=== PATIENT | female | born 1940 | race Caucasian/White ===

== ENCOUNTER 2017-05-20 10:19 | Outpatient (CLI) | payer MEDICARE, BC | END 2017-05-20 10:20 | disposition home or self-care (01) | LOC: BICMAMMO 10:19 | PROVIDERS: ATTEND Surgery | DX: R92.8 Other abnormal and inconclusive findings on diagnostic imaging of breast (principal); Z85.3 Personal history of malignant neoplasm of breast | CPT/HCPCS: G0204; G0279; 77066 ==

== ENCOUNTER 2018-03-17 10:30 | Outpatient (CLI) | payer MEDICARE, BC ==
--- NOTE | 2018-03-17 12:25 | CT ---
CT ABDOMEN AND PELVIS WITH CONTRAST: Date: 03/17/18 COMPARISON: 10/15/16. HISTORY: Colitis. Lower abdominal pain and diarrhea since January. TECHNIQUE: Multiple contiguous axial images were obtained in a CT of the abdomen and pelvis with contrast. PO co ntrast was administered. Coronal reformats were performed. FINDINGS: The liver, gallbladder, kidneys, adrenal glands, spleen, and pancreas are unremarkable. No free air, free fluid, or stranding changes are seen in the abdomen or pelvis. There is a stable hypodensity along the right aspect of the pelvis measuring 2.7 cm in size, which ma y represent a right ovarian cyst/follicle. The reproductive organs are otherwise unremarkable. There are a few scattered diverticula in the colon. The large and small bowel are otherwise unremarka ble. The appendix is normal. No abdominal or pelvic lymphadenopathy are seen. Atherosclerotic calcifications are seen in the aorta . Degenerative changes are seen in the spine. The visualized inferior thorax and abdominal wall soft ti ssues are unremarkable. IMPRESSION: 1. No evidence of acute intra-abdominal/pelvic abnormality. 2. Diverticulosis without evidence of acute diverticulitis. 3. Stable right ovarian cyst/follicle. POS: [facility]
[2018-03-17] MEDS ORDERED: Iopamidol 370 76% 100 ML VIAL ONE (12:44)
== END 2018-03-17 10:31 | disposition home or self-care (01) ==
LOC: BICCT 10:30
PROVIDERS: ATTEND Internal Medicine Gastroenterology
DX: K52.9 Noninfective gastroenteritis and colitis, unspecified (principal); K57.30 Diverticulosis of large intestine without perforation or abscess without bleeding; N83.01 Follicular cyst of right ovary
CPT/HCPCS: 74177

== ENCOUNTER 2018-06-17 09:11 | Outpatient (CLI) | payer MEDICARE, BC ==
--- NOTE | 2018-06-19 08:59 | MMO ---
FILMS COMPARED: The present examination has been compared to prior imaging studies performed at [facility] on 05/17/2014, 05/17/2015, 05/22/2016 and 11/20/2016, and at [facility] [place] on 03/02/2014 and 03/08/2014. MAMMOGRAM FINDINGS: There are scattered fibroglandular densities. Finding 1: There are benign appearing calcifications seen in both breasts. Finding 2: There are biopsy clips seen in both breasts. There are no suspicious masses, calcifications or areas of architectural distortion. IMPRESSION: ALL ABOVE FINDINGS ARE BENIGN. A ROUTINE FOLLOW-UP MAMMOGRAM IN 1 YEAR IS RECOMMENDED. ACR BI-RADS Category 2 - Benign finding
== END 2018-06-17 09:12 | disposition home or self-care (01) ==
LOC: BICMAMMO 09:11
PROVIDERS: ATTEND Internal Medicine Medical Oncology
DX: Z08 Encounter for follow-up examination after completed treatment for malignant neoplasm (principal); Z85.3 Personal history of malignant neoplasm of breast
CPT/HCPCS: 77066; G0279

== ENCOUNTER 2021-04-25 08:58 | Outpatient (CLI) | payer MEDICARE, BC | END 2021-04-25 08:59 | disposition home or self-care (01) | LOC: NM 08:58 | PROVIDERS: ATTEND Internal Medicine | DX: R10.84 Generalized abdominal pain (principal) | CPT/HCPCS: 78227; A9537 ==

== ENCOUNTER 2024-12-09 09:26 | Outpatient (CLI) | payer MEDICARE, BC | END 2024-12-09 09:27 | disposition home or self-care (01) | LOC: BICMAMMO 09:26 | PROVIDERS: ATTEND Internal Medicine | DX: Z13.820 Encounter for screening for osteoporosis (principal); M81.0 Age-related osteoporosis without current pathological fracture; M85.851 Other specified disorders of bone density and structure, right thigh; M85.852 Other specified disorders of bone density and structure, left thigh | CPT/HCPCS: 77080 ==

== ENCOUNTER 2025-04-02 08:35 | Outpatient (CLI) | payer MEDICARE, BC | END 2025-04-02 08:36 | disposition home or self-care (01) | LOC: NM 08:35 | PROVIDERS: ATTEND Internal Medicine | DX: R25.1 Tremor, unspecified (principal); Z82.0 Family history of epilepsy and other diseases of the nervous system | CPT/HCPCS: 78803; A9584 ×2 ==